=== PATIENT | female | born 1965 | race Caucasian/White ===

== ENCOUNTER 2018-11-22 22:49 | Emergency (ER) | payer BC ==
[2018-11-23] MEDS ORDERED: Ketorolac INJ* 30 MG/ML 1 ML VIAL IM ONE (01:13)
[2018-11-23] MEDS ORDERED: oxyCODONE/Acetamin 5/325 MG* TAB PO ONE (01:14)
--- NOTE | 2018-11-23 01:19 | ED ---
Back Pain - HPI Summary HPI Summary: This patient is a 53 year old female presenting to [facility] with a chief complaint of lower back pain since a week ago. She states she felt worse this morning so she wanted to get it checked. She states the pain radiates to her thighs and bilateral hips. She rates her pain 10/10 in severity. - History of Current Complaint Chief Complaint: EDBackInjuryPain Stated Complaint: BACK AND HIP PAIN PER PT Time Seen by Provider: 11/23/18 00:59 Hx Obtained From: Patient Onset/Duration: Lasting Weeks Onset/Duration: Started Weeks Ago, Atraumatic, Still Present, Worse Since - Today Timing: Constant Severity Currently: Severe Pain Intensity: 10 Pain Scale Used: 0-10 Numeric - Allergies/Home Medications Allergies/Adverse Reactions: Allergies Allergy/AdvReac Type Severity Reaction Status Date / Time No Known Allergies Allergy Verified 11/22/18 23:02 PMH/Surg Hx/FS Hx/Imm Hx Endocrine/Hematology History: Reports: Hx Diabetes Denies: Hx Thyroid Disease Cardiovascular History: Denies: Hx Hypertension Respiratory History: Denies: Hx Asthma, Hx Chronic Obstructive Pulmonary Disease (COPD) GI History: Denies: Hx Ulcer Infectious Disease History: No Infectious Disease History: Denies: Hx Hepatitis, Hx Human Immunodeficiency Virus (HIV), Traveled Outside the [place] in Last 30 Days - Family History Known Family History: Positive: Diabetes - Social History Alcohol Use: None Substance Use Type: Reports: None Smoking Status (MU): Never Smoked Tobacco Review of Systems Negative: Fever Positive: Other - Back pain radiating to her lower extremities. All Other Systems Reviewed And Are Negative: Yes Physical Exam - Summary Physical Exam Summary: VITAL SIGNS: Reviewed. GENERAL: Patient is a well-developed and nourished FEMALE who is lying comfortable in the stretcher. Patient is not in any acute respiratory distress. HEAD AND FACE: No signs of trauma. No ecchymosis, hematomas or skull depressions. No sinus tenderness. EYES: PERRLA, EOMI x 2, No injected conjunctiva, no nystagmus. EARS: Hearing grossly intact. Ear canals and tympanic membranes are within normal limits. MOUTH: Oropharynx within normal limits. NECK: Supple, trachea is midline, no adenopathy, no JVD, no carotid bruit, no c- spine tenderness, neck with full ROM. Lumbar sacral tenderness. Bilateral leg- raise test positive at 60 degrees. CHEST: Symmetric, no tenderness at palpation LUNGS: Clear to auscultation bilaterally. No wheezing or crackles. CVS: Regular rate and rhythm, S1 and S2 present, no murmurs or gallops appreciated. ABDOMEN: Soft, non-tender. No signs of distention. No rebound no guarding, and no masses palpated. Bowel sounds are normal. EXTREMITIES: FROM in all major joints, no edema, no cyanosis or clubbing. NEURO: Alert and oriented x 3. No acute neurological deficits. Speech is normal and follows commands. SKIN: Dry and warm Triage Information Reviewed: Yes Vital Signs On Initial Exam: Initial Vitals Temp Pulse Resp BP Pulse Ox 99.6 F 71 16 107/52 99 11/22/18 23:00 11/22/18 23:00 11/22/18 23:00 11/22/18 23:00 11/22/18 23:00 Vital Signs Reviewed: Yes Diagnostics - Vital Signs Vital Signs Temp Pulse Resp BP Pulse Ox 11/22/18 23:00 99.6 F 71 16 107/52 99 - Laboratory Lab Statement: Any lab studies that have been ordered have been reviewed, and results considered in the medical decision making process. Back Pain Course/Dx - Course Course Of Treatment: This patient is a 53 year old female presenting to [facility] with a chief complaint of lower back pain since a week ago. Physical exam was unremarkable for muscloskeletal problems. The patient will be discharged and she is agreeable with this plan. - Diagnoses Provider Diagnoses: Lower back pain Discharge - Sign-Out/Discharge Documenting (check all that apply): Patient Departure - Discharge Patient Received Moderate/Deep Sedation with Procedure: No - Discharge Plan Condition: Stable Disposition: HOME Prescriptions: Oxycodone/ASA 5/325 (NF) [Percodan 5/325 (NF)] 1 tab PO Q6H PRN #14 tab MDD 4 PRN Reason: Pain Patient Education Materials: Low Back Strain (ED) Referrals: oCurtney Williamson NP [Primary Care Provider] - - Attestation Statements Document Initiated by Scribe: Yes Documenting Scribe: Vincent Alejandra Provider For Whom Scribe is Documenting (Include Credential): Jluis Morgan MD Scribe Attestation: Vincent Fontenot, concepcionibed for Jluis Morgan MD on 11/23/18 at 0228. Status of Scribe Document: Ready
[2018-11-23 02:32] VITALS: BP 112/57
== END 2018-11-23 02:36 | disposition home or self-care (01) ==
LOC: ED 22:49
DX: M54.5 Low back pain (principal)
CPT/HCPCS: 96372; 99281; A9270-GY; J1885